=== PATIENT | female | born 1960 | race Caucasian/White ===

== ENCOUNTER → 2016-07-21 | Outpatient (CLI) | payer BC | LOC: KOH-I 15:29 | DX: R10.9 Unspecified abdominal pain (principal); K43.9 Ventral hernia without obstruction or gangrene; Z87.19 Personal history of other diseases of the digestive system | CPT/HCPCS: 74177; Q9962 ==

== ENCOUNTER → 2020-05-16 | Outpatient (CLI) | payer BC, OTHER ==
[~2020-05-16] MED LIST: OMNICEF 300 MG300 MG PO
== END ==
LOC: HEART 5 14:28
DX: R06.02 Shortness of breath (principal); R94.2 Abnormal results of pulmonary function studies
CPT/HCPCS: 94010; 94729

== ENCOUNTER → 2020-09-20 | Outpatient (CLI) | payer BC, OTHER ==
[2020-09-22 07:12] LABS: RHEUMATOID ARTHRITIS FACTOR <10.0 IU/mL (0.0-13.9); VITAMIN D, 25-HYDROXY 36.7 ng/mL (30.0-100.0)
[2020-09-22 08:13] LABS: T3 UPTAKE 24 % (24-39); THYROXINE (T4) 8.2 ug/dL (4.5-12.0)
[2020-09-23 04:09] LABS: CCP ANTIBODIES IGG/IGA 4 units (0-19)
== END ==
LOC: LAB 15:11
PROVIDERS: Internal Medicine
DX: E55.9 Vitamin D deficiency, unspecified (principal); M25.50 Pain in unspecified joint; M77.10 Lateral epicondylitis, unspecified elbow; R79.89 Other specified abnormal findings of blood chemistry; D47.3 Essential (hemorrhagic) thrombocythemia
CPT/HCPCS: 36415; 82728; 83520; 84436; 84439; 84443; 84479; 85652; 86140; 86200; 86431